=== PATIENT | male | born 1935 | race Caucasian/White ===

== ENCOUNTER 2019-06-01 18:40 | Inpatient (IN) | payer MEDICARE, MEDICAID ==
[~2019-06-01] VITALS: Ht 176.5 cm; Wt 79.2 kg
--- NOTE | 2019-06-01 18:53 | NUR ---
PT BIB BY [facility] FROM [place]. PT WAS SOB IN THE MORNING AND WENT TO . BLOOD LAB RESULTS AT SHOWED ELEVATED TROP AND BNP. PT STATES HE BECOMES SOB WHEN HE LAYS FLAT. PT STATES HE HASNT TAKEN HIS MEDICATIONS IN OVER A MONTH. MED STUDENT KALIE IS BEDSIDE. CALL LIGHT WITHIN REACH
[2019-06-01] MEDS ORDERED: ALBUTEROL/IPRATROPIUM 2.5MG/0.5MG, 3 ML ONE (19:24)
[2019-06-01] MEDS ORDERED: ALBUTEROL/IPRATROPIUM 2.5MG/0.5MG, 3 ML NPPB ONE (19:30)
[2019-06-01] MEDS ORDERED: hydrALAzine 20 MG/ML, 1ML IV ONE (19:30)
--- NOTE | 2019-06-01 19:30 | NUR ---
PRECEPTOR NOTE: DR. CHAMPAGNE AT BEDSIDE. PER DR. CHAMPAGNE, HEPARIN DOES NOT NEED TO BE STARTED HERE AND PT WILL PROBABLY GET LOVENOX FROM HOSPITALIST. PT DENIES ANY CP.
[2019-06-01] MEDS ORDERED: hydrALAzine 20 MG/ML, 1ML ONE (19:33)
[2019-06-01] MEDS ORDERED: PLEASE ENTER ALLERGIES MC SCH (20:00)
--- NOTE | 2019-06-01 20:12 | NUR ---
PT RESTING IN HOSPITAL BED. BLANKET PROVIDED. NO NEEDS AT THIS TIME
--- NOTE | 2019-06-01 20:20 | NUR ---
PT WAS RECEIVING HEPARIN [employer]. WAS GIVEN BOLUS AND DRIP WAS RUNNING. DISCONTINUED AT ARRIVAL
--- NOTE | 2019-06-01 21:29 | NUR ---
PT IS RESTING IN HOSPITAL BED. WATCHING TV. AWAITING ROOM FOR ADMIT. NO NEEDS AT THIS TIME
--- NOTE | 2019-06-01 22:10 | NUR ---
REPORT GIVEN TO SINDY NOVA.
[2019-06-01 22:40] VITALS: BP 163/81
[2019-06-01] MEDS ORDERED: hydrALAzine 20 MG/ML, 1ML IVPush PRN (23:00)
[2019-06-01] MEDS ORDERED: morphine SULFATE 10 MG/ML, 1ML IVPush PRN (23:00)
[2019-06-01] MEDS ORDERED: PROMETHAZINE 25 MG/ML, 1ML IM PRN (23:00)
[2019-06-01] MEDS ORDERED: ACETAMINOPHEN 325 MG TABLET PO PRN (23:00)
[2019-06-01] MEDS: methylPREDNISolone SOD SUCC 125 MG/2 ML IVPush SCH (23:18)
[2019-06-01] MEDS: HEPARIN 5,000 UNITS/ML, 1ML SQ SCH (23:18)
[2019-06-01 23:49] LABS: TROPONIN I 0.164 ng/mL (0.000-0.045)
[2019-06-02] VITALS (7 sets, daily range): BP systolic 127–177; BP diastolic 70–87
[2019-06-02 00:29] LABS: FREE T4 (FREE THYROXINE) 0.37 ng/dL (0.76-1.46)
[2019-06-02 05:07] LABS: BASOPHILS # (AUTO) 0.04 x10^3/uL (0-0.1); BASOPHILS % (AUTO) 1 % (0-1); EOSINOPHILS # (AUTO) 0.01 x10^3/uL (0-0.4); EOSINOPHILS % (AUTO) 0 % (1-7); LYMPHOCYTES # (AUTO) 0.64 x10^3/uL (1-3.4); LYMPHOCYTES % (AUTO) 10 % (22-44); MD NO; MEAN CORPUSCULAR HEMOGLOBIN 29.5 pg (27.5-34.5); MEAN CORPUSCULAR HGB CONC 32.9 g/dL (33.2-36.2); MEAN CORPUSCULAR VOLUME 89.6 fL (81-97); MEAN PLATELET VOLUME 9.8 fL (7.4-10.4); MONOCYTES # (AUTO) 0.06 x10^3/uL (0.2-0.8); MONOCYTES % (AUTO) 1 % (2-9); NEUTROPHILS # (AUTO) 5.79 x10^3/uL (1.8-6.8); NEUTROPHILS % (AUTO) 89 % (42-75); PLATELET COUNT 217 x10^3/uL (130-400); RED BLOOD COUNT 3.95 x10^6/uL (4.38-5.82); RED CELL DISTRIBUTION WIDTH 14.9 % (9.4-14.8)
[2019-06-02] MEDS: methylPREDNISolone SOD SUCC 125 MG/2 ML IVPush SCH ×4 (05:09→22:01)
[2019-06-02] MEDS: ASPIRIN 81 MG TABLET EC PO SCH (05:10)
[2019-06-02 05:16] LABS: CHLORIDE 114 mmol/L (98-107)
[2019-06-02 05:28] LABS: ALANINE AMINOTRANSFERASE 9 U/L (12-78); ALBUMIN 2.5 g/dL (3.4-5.0); ALKALINE PHOSPHATASE 105 U/L (45-117); ANION GAP 5 mmol/L (5-15); BILIRUBIN,TOTAL 0.8 mg/dL (0.2-1.0); CALCIUM 8.7 mg/dL (8.5-10.1); CHOL/HDL RATIO 6.3; CHOLESTEROL, TOTAL 190 mg/dL (140-239); CREATININE 1.76 mg/dL (0.7-1.3); HDL CHOL % 16 % (26-37); HDL CHOLESTEROL (DIRECT) 30 mg/dL (40-60); LDL CHOLESTEROL,CALCULATED 116 mg/dL (54-169); LDL/HDL RATIO 3.9 (0.5-3.0); TOTAL PROTEIN 5.6 g/dL (6.4-8.2); TRIGLYCERIDES 218 mg/dL (50-200); VLDL CHOLESTEROL 44 mg/dL (0-25)
[2019-06-02] MEDS: HEPARIN 5,000 UNITS/ML, 1ML SQ SCH ×3 (06:13→22:01)
[2019-06-02] MEDS ORDERED: FUROSEMIDE 20 MG/2 ML IV ONE (07:00)
[2019-06-02] MEDS: ALBUTEROL/IPRATROPIUM 2.5MG/0.5MG, 3 ML NPPB SCH ×3 (07:15→19:07)
[2019-06-02] MEDS: DOXYCYCLINE 100MG CAP PO SCH ×2 (08:44→22:01)
[2019-06-02] MEDS: LEVOTHYROXINE 50 MCG TABLET PO SCH (08:53)
[2019-06-02] MEDS ORDERED: hydrALAzine 20 MG/ML, 1ML IV PRN (09:00)
[2019-06-02] MEDS ORDERED: POTASSIUM PHOSPHATE 22 MEQ in SODIUM CHLORIDE 0.9% 500 ML IV ONE (10:00)
[2019-06-02] MEDS: CEFTRIAXONE PMX 1GM/50ML 50 ML IV SCH (10:55)
[2019-06-02] MEDS ORDERED: DOXA1TAB2 PO (12:37)
[2019-06-02] MEDS ORDERED: LEVO75TA5 PO (12:37)
[2019-06-02] MEDS ORDERED: LOSA100T14 PO (12:37)
[2019-06-02] MEDS ORDERED: HYDR12.517 PO (12:37)
[2019-06-02] MEDS ORDERED: ISOS30TA21 PO (12:37)
[2019-06-02] MEDS ORDERED: ASPI-650 PO (12:37)
[2019-06-02] MEDS ORDERED: CLON1PAT2 TP (12:37)
[2019-06-02] MEDS ORDERED: TAMS-11 PO (12:37)
[2019-06-02] MEDS: FUROSEMIDE 40 MG/4 ML IV SCH (16:13)
[2019-06-02] MEDS: POTASSIUM CHLORIDE 20 MEQ TAB.ER.PRT PO SCH (16:14)
[2019-06-03] MEDS ORDERED: TAMSULOSIN 0.4 MG CAP.ER.24H PO ONE (01:30)
[2019-06-03 01:38] VITALS: BP 161/80
[2019-06-03 05:33] LABS: ALANINE AMINOTRANSFERASE 20 U/L (12-78); ALBUMIN 2.8 g/dL (3.4-5.0); ANION GAP 9 mmol/L (5-15); CALCIUM 9.1 mg/dL (8.5-10.1); CHLORIDE 109 mmol/L (98-107); CREATININE 2.37 mg/dL (0.7-1.3)
[2019-06-03 05:35] LABS: ALKALINE PHOSPHATASE 107 U/L (45-117); BILIRUBIN,TOTAL 0.6 mg/dL (0.2-1.0); TOTAL PROTEIN 6.2 g/dL (6.4-8.2)
[2019-06-03 05:43] LABS: MEAN CORPUSCULAR HEMOGLOBIN 29.4 pg (27.5-34.5); MEAN CORPUSCULAR HGB CONC 33.1 g/dL (33.2-36.2); RED CELL DISTRIBUTION WIDTH 14.6 % (9.4-14.8)
[2019-06-03 06:04] VITALS: BP 165/101
[2019-06-03] MEDS: FUROSEMIDE 40 MG/4 ML IV SCH (06:06)
[2019-06-03] MEDS: ASPIRIN 81 MG TABLET EC PO SCH (06:06)
[2019-06-03] MEDS: HEPARIN 5,000 UNITS/ML, 1ML SQ SCH ×2 (06:06→15:04)
[2019-06-03] MEDS: LEVOTHYROXINE 50 MCG TABLET PO SCH (06:06)
[2019-06-03] MEDS: methylPREDNISolone SOD SUCC 125 MG/2 ML IVPush SCH ×3 (06:07→17:39)
[2019-06-03 06:26] LABS: BASOPHILS % (AUTO) 0 % (0-1); EOSINOPHILS % (AUTO) 0 % (1-7); LYMPHOCYTES # (AUTO) 0.85 x10^3/uL (1-3.4); LYMPHOCYTES % (AUTO) 7 % (22-44); MD SCAN; MEAN PLATELET VOLUME 9.9 fL (7.4-10.4); MONOCYTES # (AUTO) 0.23 x10^3/uL (0.2-0.8); MONOCYTES % (AUTO) 2 % (2-9); NEUTROPHILS % (AUTO) 91 % (42-75); PLATELET COUNT 267 x10^3/uL (130-400)
[2019-06-03] MEDS: ALBUTEROL/IPRATROPIUM 2.5MG/0.5MG, 3 ML NPPB SCH ×5 (06:57→19:18)
[2019-06-03 07:10] VITALS: BP 149/78
[2019-06-03] MEDS: SPIRONOLACTONE 25 MG TABLET PO SCH (08:55)
[2019-06-03] MEDS: DOXYCYCLINE 100MG CAP PO SCH ×2 (08:55→19:50)
[2019-06-03] MEDS: POTASSIUM CHLORIDE 20 MEQ TAB.ER.PRT PO SCH (08:56)
[2019-06-03] MEDS: TAMSULOSIN 0.4 MG CAP.ER.24H PO SCH (08:56)
[2019-06-03] MEDS: CEFTRIAXONE PMX 1GM/50ML 50 ML IV SCH (10:50)
[2019-06-03 15:10] VITALS: BP 113/69
[2019-06-03] MEDS ORDERED: methylPREDNISolone SOD SUCC 125 MG/2 ML IVPush SCH (17:00)
[2019-06-03] MEDS ORDERED: ALBUTEROL/IPRATROPIUM 2.5MG/0.5MG, 3 ML NPPB PRN (18:00)
[2019-06-03 19:24] VITALS: BP 146/72
[2019-06-04] MEDS: methylPREDNISolone SOD SUCC 125 MG/2 ML IVPush SCH ×4 (00:11→21:33)
[2019-06-04] MEDS: HEPARIN 5,000 UNITS/ML, 1ML SQ SCH ×4 (00:11→23:00)
[2019-06-04 01:27] VITALS: BP 134/68
[2019-06-04 05:04] LABS: MEAN CORPUSCULAR HEMOGLOBIN 29.5 pg (27.5-34.5); MEAN CORPUSCULAR HGB CONC 32.7 g/dL (33.2-36.2); MEAN CORPUSCULAR VOLUME 90.2 fL (81-97); MEAN PLATELET VOLUME 10.2 fL (7.4-10.4); PLATELET COUNT 221 x10^3/uL (130-400); RED CELL DISTRIBUTION WIDTH 14.9 % (9.4-14.8)
[2019-06-04 05:14] LABS: ANION GAP 7 mmol/L (5-15); CALCIUM 8.9 mg/dL (8.5-10.1); CHLORIDE 107 mmol/L (98-107)
[2019-06-04 05:24] LABS: BASOPHILS # (AUTO) 0.01 x10^3/uL (0-0.1); BASOPHILS % (AUTO) 0 % (0-1); EOSINOPHILS # (AUTO) 0.01 x10^3/uL (0-0.4); EOSINOPHILS % (AUTO) 0 % (1-7); LYMPHOCYTES % (AUTO) 3 % (22-44); MD SCAN; MONOCYTES # (AUTO) 0.23 x10^3/uL (0.2-0.8); MONOCYTES % (AUTO) 2 % (2-9); NEUTROPHILS # (AUTO) 12.77 x10^3/uL (1.8-6.8); NEUTROPHILS % (AUTO) 95 % (42-75)
[2019-06-04] MEDS: ASPIRIN 81 MG TABLET EC PO SCH (06:12)
[2019-06-04 07:10] VITALS: BP 133/81
[2019-06-04] MEDS: ALBUTEROL/IPRATROPIUM 2.5MG/0.5MG, 3 ML NPPB SCH ×4 (07:55→20:00)
[2019-06-04] MEDS: CEFTRIAXONE PMX 1GM/50ML 50 ML IV SCH (10:01)
[2019-06-04] MEDS: TAMSULOSIN 0.4 MG CAP.ER.24H PO SCH (10:02)
[2019-06-04] MEDS: DOXYCYCLINE 100MG CAP PO SCH (10:02)
[2019-06-04] MEDS: SPIRONOLACTONE 25 MG TABLET PO SCH (10:02)
[2019-06-04] MEDS ORDERED: MAGNESIUM SULFATE PMX 2GM/50ML 50 ML IV ONE (10:30)
[2019-06-04 13:47] VITALS: BP 126/78
[2019-06-04 19:51] LABS: MICROSCOPIC INDICATED
[2019-06-04 19:59] LABS: CULTURE INDICATED? NO
[2019-06-04] MEDS: FINASTERIDE 5 MG TABLET PO SCH (21:30)
[2019-06-05 00:13] VITALS: BP 136/79
[2019-06-05 03:08] LABS: MICROSCOPIC INDICATED
[2019-06-05 03:24] LABS: CULTURE INDICATED? NO
[2019-06-05 05:15] LABS: MEAN CORPUSCULAR HEMOGLOBIN 29.7 pg (27.5-34.5); MEAN CORPUSCULAR HGB CONC 33.2 g/dL (33.2-36.2); MEAN CORPUSCULAR VOLUME 89.4 fL (81-97); MEAN PLATELET VOLUME 10.4 fL (7.4-10.4); PLATELET COUNT 196 x10^3/uL (130-400); RED BLOOD COUNT 3.68 x10^6/uL (4.38-5.82); RED CELL DISTRIBUTION WIDTH 14.5 % (9.4-14.8)
[2019-06-05 05:27] LABS: ANION GAP 7 mmol/L (5-15); CALCIUM 8.7 mg/dL (8.5-10.1); CHLORIDE 107 mmol/L (98-107)
[2019-06-05 05:31] LABS: CREATININE 2.49 mg/dL (0.7-1.3)
[2019-06-05 05:36] LABS: BASOPHILS # (AUTO) 0.03 x10^3/uL (0-0.1); BASOPHILS % (AUTO) 0 % (0-1); EOSINOPHILS % (AUTO) 0 % (1-7); LYMPHOCYTES # (AUTO) 0.31 x10^3/uL (1-3.4); LYMPHOCYTES % (AUTO) 3 % (22-44); MD SCAN; MONOCYTES # (AUTO) 0.19 x10^3/uL (0.2-0.8); MONOCYTES % (AUTO) 2 % (2-9); NEUTROPHILS # (AUTO) 9.97 x10^3/uL (1.8-6.8); NEUTROPHILS % (AUTO) 95 % (42-75)
[2019-06-05] MEDS: ASPIRIN 81 MG TABLET EC PO SCH (05:43)
[2019-06-05] MEDS: ALBUTEROL/IPRATROPIUM 2.5MG/0.5MG, 3 ML NPPB SCH ×4 (06:20→20:12)
[2019-06-05] MEDS: HEPARIN 5,000 UNITS/ML, 1ML SQ SCH ×3 (06:38→23:32)
[2019-06-05 08:20] VITALS: BP 139/77
[2019-06-05] MEDS: FINASTERIDE 5 MG TABLET PO SCH (09:53)
[2019-06-05] MEDS: TAMSULOSIN 0.4 MG CAP.ER.24H PO SCH (09:54)
[2019-06-05] MEDS: methylPREDNISolone SOD SUCC 125 MG/2 ML IVPush SCH ×2 (09:55→20:47)
[2019-06-05] MEDS ORDERED: FUROSEMIDE 40 MG/4 ML IV SCH (10:30)
[2019-06-05] MEDS: AZITHROMYCIN 250 MG TABLET PO SCH (11:10)
[2019-06-05 12:24] VITALS: BP 156/85
[2019-06-05 20:44] VITALS: BP 148/67
[2019-06-06 01:49] VITALS: BP 152/70
[2019-06-06 05:38] LABS: BASOPHILS % (AUTO) 0 % (0-1); EOSINOPHILS % (AUTO) 0 % (1-7); LYMPHOCYTES # (AUTO) 0.36 x10^3/uL (1-3.4); LYMPHOCYTES % (AUTO) 3 % (22-44); MD NO; MEAN CORPUSCULAR HEMOGLOBIN 29.4 pg (27.5-34.5); MEAN CORPUSCULAR HGB CONC 32.5 g/dL (33.2-36.2); MEAN CORPUSCULAR VOLUME 90.3 fL (81-97); MEAN PLATELET VOLUME 10.6 fL (7.4-10.4); MONOCYTES # (AUTO) 0.25 x10^3/uL (0.2-0.8); MONOCYTES % (AUTO) 2 % (2-9); NEUTROPHILS # (AUTO) 10.41 x10^3/uL (1.8-6.8); NEUTROPHILS % (AUTO) 94 % (42-75); PLATELET COUNT 194 x10^3/uL (130-400); RED BLOOD COUNT 4.06 x10^6/uL (4.38-5.82); RED CELL DISTRIBUTION WIDTH 14.5 % (9.4-14.8)
[2019-06-06] MEDS: ASPIRIN 81 MG TABLET EC PO SCH (06:09)
[2019-06-06 07:06] VITALS: BP 165/80
[2019-06-06] MEDS: ALBUTEROL/IPRATROPIUM 2.5MG/0.5MG, 3 ML NPPB SCH ×4 (07:55→20:00)
[2019-06-06 08:37] LABS: ANION GAP 7 mmol/L (5-15); CALCIUM 9.2 mg/dL (8.5-10.1); CHLORIDE 108 mmol/L (98-107); CREATININE 2.52 mg/dL (0.7-1.3)
[2019-06-06] MEDS: FINASTERIDE 5 MG TABLET PO SCH (09:51)
[2019-06-06] MEDS: TAMSULOSIN 0.4 MG CAP.ER.24H PO SCH (09:51)
[2019-06-06] MEDS: AZITHROMYCIN 250 MG TABLET PO SCH (09:51)
[2019-06-06] MEDS: FUROSEMIDE 40 MG/4 ML IV SCH ×2 (09:51→21:11)
[2019-06-06] MEDS: HEPARIN 5,000 UNITS/ML, 1ML SQ SCH ×2 (09:51→17:45)
[2019-06-06 14:10] VITALS: BP 146/83
[2019-06-06 21:09] VITALS: BP 149/84
[2019-06-07] MEDS: HEPARIN 5,000 UNITS/ML, 1ML SQ SCH ×3 (01:39→20:00)
[2019-06-07 01:41] VITALS: BP 157/84
[2019-06-07 05:02] LABS: BASOPHILS # (AUTO) 0.01 x10^3/uL (0-0.1); BASOPHILS % (AUTO) 0 % (0-1); EOSINOPHILS % (AUTO) 0 % (1-7); LYMPHOCYTES # (AUTO) 0.46 x10^3/uL (1-3.4); LYMPHOCYTES % (AUTO) 4 % (22-44); MD NO; MEAN CORPUSCULAR HEMOGLOBIN 29.6 pg (27.5-34.5); MEAN CORPUSCULAR HGB CONC 32.9 g/dL (33.2-36.2); MEAN PLATELET VOLUME 10.4 fL (7.4-10.4); MONOCYTES # (AUTO) 0.38 x10^3/uL (0.2-0.8); MONOCYTES % (AUTO) 4 % (2-9); NEUTROPHILS # (AUTO) 9.88 x10^3/uL (1.8-6.8); NEUTROPHILS % (AUTO) 92 % (42-75); PLATELET COUNT 197 x10^3/uL (130-400); RED BLOOD COUNT 4.09 x10^6/uL (4.38-5.82); RED CELL DISTRIBUTION WIDTH 14.3 % (9.4-14.8)
[2019-06-07 05:17] LABS: ANION GAP 5 mmol/L (5-15); CALCIUM 8.9 mg/dL (8.5-10.1); CHLORIDE 105 mmol/L (98-107); CREATININE 2.24 mg/dL (0.7-1.3)
[2019-06-07] MEDS: ASPIRIN 81 MG TABLET EC PO SCH (05:48)
[2019-06-07 06:39] VITALS: BP 160/85
[2019-06-07] MEDS: ALBUTEROL/IPRATROPIUM 2.5MG/0.5MG, 3 ML NPPB SCH ×4 (06:55→18:45)
[2019-06-07] MEDS: TAMSULOSIN 0.4 MG CAP.ER.24H PO SCH (08:34)
[2019-06-07] MEDS: FUROSEMIDE 40 MG/4 ML IV SCH ×2 (08:34→20:00)
[2019-06-07] MEDS: FINASTERIDE 5 MG TABLET PO SCH (08:35)
[2019-06-07] MEDS: AZITHROMYCIN 250 MG TABLET PO SCH (08:35)
[2019-06-07 12:03] VITALS: BP 141/78
[2019-06-07] MEDS ORDERED: POLYETHYLENE GLYCOL 17 GM PACKET NG ONE (16:00)
[2019-06-07] MEDS: METOPROLOL TARTRATE 25 MG TABLET PO SCH (18:05)
[2019-06-07 18:25] VITALS: BP 145/88
[2019-06-07] MEDS: DOCUSATE 100 MG CAPSULE PO SCH (20:00)
[2019-06-08 02:39] VITALS: BP 138/70
[2019-06-08] MEDS: HEPARIN 5,000 UNITS/ML, 1ML SQ SCH ×3 (02:42→23:57)
[2019-06-08 05:13] VITALS: BP 150/77
[2019-06-08] MEDS: METOPROLOL TARTRATE 25 MG TABLET PO SCH ×2 (05:14→17:25)
[2019-06-08] MEDS: ASPIRIN 81 MG TABLET EC PO SCH (05:14)
[2019-06-08 06:12] LABS: MEAN CORPUSCULAR HEMOGLOBIN 29.3 pg (27.5-34.5); MEAN CORPUSCULAR HGB CONC 32.4 g/dL (33.2-36.2); MEAN CORPUSCULAR VOLUME 90.4 fL (81-97); MEAN PLATELET VOLUME 11.2 fL (7.4-10.4); PLATELET COUNT 201 x10^3/uL (130-400); RED BLOOD COUNT 4.26 x10^6/uL (4.38-5.82); RED CELL DISTRIBUTION WIDTH 14.5 % (9.4-14.8)
[2019-06-08 06:22] LABS: CHLORIDE 103 mmol/L (98-107)
[2019-06-08 06:25] LABS: ANION GAP 8 mmol/L (5-15); CREATININE 2.18 mg/dL (0.7-1.3)
[2019-06-08] MEDS: ALBUTEROL/IPRATROPIUM 2.5MG/0.5MG, 3 ML NPPB SCH ×4 (06:30→18:58)
[2019-06-08 06:56] LABS: BASOPHILS # (AUTO) 0.01 x10^3/uL (0-0.1); BASOPHILS % (AUTO) 0 % (0-1); EOSINOPHILS % (AUTO) 0 % (1-7); LYMPHOCYTES # (AUTO) 0.61 x10^3/uL (1-3.4); LYMPHOCYTES % (AUTO) 5 % (22-44); MD SCAN; MONOCYTES # (AUTO) 0.81 x10^3/uL (0.2-0.8); MONOCYTES % (AUTO) 6 % (2-9); NEUTROPHILS % (AUTO) 89 % (42-75)
[2019-06-08 07:26] VITALS: BP 144/75
[2019-06-08] MEDS ORDERED: DOXAZOSIN 1MG TABLET PO SCH (09:00)
[2019-06-08] MEDS ORDERED: HYDROCHLOROTHIAZIDE 12.5 MG CAPSULE PO SCH (09:00)
[2019-06-08] MEDS ORDERED: ASPIRIN 325 MG TABLET EC PO SCH (09:00)
[2019-06-08] MEDS: FUROSEMIDE 40 MG/4 ML IV SCH ×2 (10:10→20:58)
[2019-06-08] MEDS: DOCUSATE 100 MG CAPSULE PO SCH ×2 (10:10→20:58)
[2019-06-08] MEDS: LEVOTHYROXINE 75 MCG TABLET PO SCH (10:11)
[2019-06-08] MEDS: AZITHROMYCIN 250 MG TABLET PO SCH (10:11)
[2019-06-08] MEDS: ISOSORBIDE MONONITRATE ER 30 MG TABLET PO SCH (10:11)
[2019-06-08] MEDS: FINASTERIDE 5 MG TABLET PO SCH (10:11)
[2019-06-08] MEDS: TAMSULOSIN 0.4 MG CAP.ER.24H PO SCH (10:11)
[2019-06-08 13:05] VITALS: BP 114/70
[2019-06-08] MEDS: LOSARTAN 100 MG TAB PO SCH (14:42)
[2019-06-08 21:09] VITALS: BP 108/65
[2019-06-08 23:58] VITALS: BP 109/66
[2019-06-09] VITALS: BP 109/66
[2019-06-09 05:08] LABS: MEAN CORPUSCULAR HEMOGLOBIN 29.6 pg (27.5-34.5); MEAN CORPUSCULAR HGB CONC 32.9 g/dL (33.2-36.2); PLATELET COUNT 191 x10^3/uL (130-400); RED BLOOD COUNT 3.84 x10^6/uL (4.38-5.82); RED CELL DISTRIBUTION WIDTH 14.7 % (9.4-14.8)
[2019-06-09 05:17] LABS: ANION GAP 7 mmol/L (5-15); CALCIUM 8.5 mg/dL (8.5-10.1); CHLORIDE 100 mmol/L (98-107); CREATININE 2.51 mg/dL (0.7-1.3)
[2019-06-09] MEDS: METOPROLOL TARTRATE 25 MG TABLET PO SCH ×2 (05:23→16:39)
[2019-06-09] MEDS: ASPIRIN 81 MG TABLET EC PO SCH (05:23)
[2019-06-09 05:25] VITALS: BP 119/68
[2019-06-09 05:45] LABS: BASOPHILS # (AUTO) 0.05 x10^3/uL (0-0.1); BASOPHILS % (AUTO) 1 % (0-1); EOSINOPHILS # (AUTO) 0.06 x10^3/uL (0-0.4); EOSINOPHILS % (AUTO) 1 % (1-7); LYMPHOCYTES % (AUTO) 6 % (22-44); MD SCAN; MONOCYTES # (AUTO) 0.56 x10^3/uL (0.2-0.8); MONOCYTES % (AUTO) 5 % (2-9); NEUTROPHILS # (AUTO) 9.44 x10^3/uL (1.8-6.8); NEUTROPHILS % (AUTO) 87 % (42-75)
[2019-06-09] MEDS: HEPARIN 5,000 UNITS/ML, 1ML SQ SCH (06:10)
[2019-06-09] MEDS: ALBUTEROL/IPRATROPIUM 2.5MG/0.5MG, 3 ML NPPB SCH (06:47)
[2019-06-09] MEDS: ISOSORBIDE MONONITRATE ER 30 MG TABLET PO SCH (07:59)
[2019-06-09] MEDS: TAMSULOSIN 0.4 MG CAP.ER.24H PO SCH (07:59)
[2019-06-09] MEDS: FUROSEMIDE 40 MG/4 ML IV SCH (07:59)
[2019-06-09] MEDS: AZITHROMYCIN 250 MG TABLET PO SCH (07:59)
[2019-06-09] MEDS: DOCUSATE 100 MG CAPSULE PO SCH (07:59)
[2019-06-09] MEDS: LOSARTAN 100 MG TAB PO SCH (08:00)
[2019-06-09] MEDS: LEVOTHYROXINE 75 MCG TABLET PO SCH (08:00)
[2019-06-09] MEDS: FINASTERIDE 5 MG TABLET PO SCH (08:04)
[2019-06-09] MEDS ORDERED: FURO40TA6 PO (09:50)
[2019-06-09] MEDS ORDERED: PRED20TA PO ×2 (09:50)
[2019-06-09] MEDS ORDERED: METO25TA35 PO (09:50)
[2019-06-09] MEDS ORDERED: TAMS-11 PO (09:50)
[2019-06-09] MEDS ORDERED: FINA5TAB4 PO (09:50)
[2019-06-09 10:45] VITALS: BP 104/62
[2019-06-09 13:20] VITALS: BP 101/60
[2019-06-09 16:45] VITALS: BP 94/55
== END 2019-06-09 16:52 | disposition home health service (06) | DRG 291 ==
LOC: ED 20:52 → EDIP 21:56 → 5SO 22:37 → DCLOUNGE 06-09 16:10
PROVIDERS: ADMIT Family Medicine; ATTEND Internal Medicine
PROC: 0T9B70Z Drainage of Bladder with Drainage Device, Via Natural or Artificial Opening (ICD-10-PCS; principal; 2019-06-04)
DX: I13.0 Hypertensive heart and chronic kidney disease with heart failure and stage 1 through stage 4 chronic kidney disease, or unspecified chronic kidney disease (principal); I50.43 Acute on chronic combined systolic (congestive) and diastolic (congestive) heart failure; J12.9 Viral pneumonia, unspecified; J44.1 Chronic obstructive pulmonary disease with (acute) exacerbation; J96.10 Chronic respiratory failure, unspecified whether with hypoxia or hypercapnia; N17.9 Acute kidney failure, unspecified; J44.0 Chronic obstructive pulmonary disease with (acute) lower respiratory infection; D64.9 Anemia, unspecified; E03.9 Hypothyroidism, unspecified; E78.5 Hyperlipidemia, unspecified; N18.3 Chronic kidney disease, stage 3 (moderate); N40.0 Benign prostatic hyperplasia without lower urinary tract symptoms; Z91.14 Patient's other noncompliance with medication regimen; I25.2 Old myocardial infarction; Z99.81 Dependence on supplemental oxygen
CPT/HCPCS: 36415; 71045; 71250; 76770; 80048; 80053; 80061; 81001; 82728; 83540; 83550; 83605; 83735; 83880; 84100; 84145; 84439; 84443; 84484; 85025; 86140; 87205; 93005; 93306; 94640; 96374; G0378; J0696; J1644; J1940; J7620; J0360; J2930; J3475; J7040; J7512

== ENCOUNTER 2019-06-16 01:26 | Inpatient (IN) | payer MEDICARE, MEDICAID ==
[~2019-06-16] VITALS: Ht 175.3 cm; Wt 74.4 kg
[~2019-06-16 01:26] MED LIST: ASPI-650 PO; CLON1PAT2 TP; DOXA1TAB2 PO; FINA5TAB4 PO; FURO40TA6 PO; HYDR12.517 PO; ISOS30TA21 PO; LEVO75TA5 PO; LOSA100T14 PO; METO25TA35 PO; PRED20TA PO; TAMS-11 PO
[2019-06-16] MEDS ORDERED: SODIUM CHLORIDE FLUSH 10ML SYR IVF ONE (01:30)
--- NOTE | 2019-06-16 01:35 | NUR ---
Patient presents to ER from [facility] for +trop. Patient was picked up by EMS from home earlier due to generalized weakness. His home health care nurse was there to check his de dios catheter and called EMS. After evaluation at [facility], patient had +trop and was sent to [facility] for higher level of care. Patient denies CP, N/V, dizziness. Patient states he was unable to get around on his own at home. Patient is in NAD. Respirations even and unlabored.
[2019-06-16 02:10] LABS: BASOPHILS # (AUTO) 0.05 x10^3/uL (0-0.1); BASOPHILS % (AUTO) 0 % (0-1); EOSINOPHILS # (AUTO) 0.11 x10^3/uL (0-0.4); EOSINOPHILS % (AUTO) 1 % (1-7); LYMPHOCYTES # (AUTO) 1.25 x10^3/uL (1-3.4); LYMPHOCYTES % (AUTO) 11 % (22-44); MD NO; MEAN CORPUSCULAR HEMOGLOBIN 29.6 pg (27.5-34.5); MEAN CORPUSCULAR HGB CONC 33.3 g/dL (33.2-36.2); MEAN PLATELET VOLUME 9.6 fL (7.4-10.4); MONOCYTES # (AUTO) 0.63 x10^3/uL (0.2-0.8); MONOCYTES % (AUTO) 6 % (2-9); NEUTROPHILS # (AUTO) 8.91 x10^3/uL (1.8-6.8); NEUTROPHILS % (AUTO) 81 % (42-75); PLATELET COUNT 175 x10^3/uL (130-400); RED BLOOD COUNT 3.61 x10^6/uL (4.38-5.82); RED CELL DISTRIBUTION WIDTH 14.6 % (9.4-14.8)
[2019-06-16 02:23] LABS: ALANINE AMINOTRANSFERASE 23 U/L (12-78); ALBUMIN 2.5 g/dL (3.4-5.0); ANION GAP 6 mmol/L (5-15); CALCIUM 8.5 mg/dL (8.5-10.1); CHLORIDE 101 mmol/L (98-107); CREATININE 2.42 mg/dL (0.7-1.3)
[2019-06-16 02:27] LABS: ALKALINE PHOSPHATASE 68 U/L (45-117); BILIRUBIN,TOTAL 0.7 mg/dL (0.2-1.0)
[2019-06-16 02:38] LABS: TROPONIN I 0.466 ng/mL (0.000-0.045)
[2019-06-16 03:06] LABS: INTERNATIONAL NORMALIZED RATIO 1.01 (0.93-1.1); PROTHROMBIN TIME 10.7 Seconds (9.6-11.5)
[2019-06-16] MEDS ORDERED: HEPARIN 25,000 UNITS/250ML PMX 250 ML ONE (03:21)
[2019-06-16] MEDS ORDERED: HEPARIN 5,000 UNITS/ML, 1ML ONE (03:21)
[2019-06-16] MEDS ORDERED: HEPARIN 25,000 UNITS/250ML PMX 250 ML IV PRN (03:30)
[2019-06-16] MEDS ORDERED: HEPARIN 5,000 UNITS/ML, 1ML IV ONE (03:30)
--- NOTE | 2019-06-16 03:41 | NUR ---
Patient report given to SINDY Yoon. Patient to be transferred to room 509-1.
[2019-06-16] MEDS ORDERED: morphine SULFATE 10 MG/ML, 1ML IVPush PRN (04:30)
[2019-06-16] MEDS ORDERED: POLYETHYLENE GLYCOL 17 GM PACKET PO PRN (04:30)
[2019-06-16] MEDS ORDERED: ONDANSETRON ODT 4 MG PO PRN (04:30)
[2019-06-16] MEDS ORDERED: BISACODYL 10 MG SUPP PR PRN (04:30)
[2019-06-16] MEDS ORDERED: hydrALAzine 20 MG/ML, 1ML IVPush PRN (04:30)
[2019-06-16] MEDS ORDERED: FUROSEMIDE 20 MG/2 ML IV ONE (04:30)
[2019-06-16] MEDS ORDERED: OXYcodone IR 5MG TABLET PO PRN (04:30)
[2019-06-16] MEDS ORDERED: ACETAMINOPHEN 325 MG TABLET PO PRN (04:30)
[2019-06-16] MEDS ORDERED: DOCUSATE 100 MG CAPSULE PO PRN (04:30)
[2019-06-16] MEDS ORDERED: PROMETHAZINE 25 MG/ML, 1ML IM PRN (04:30)
[2019-06-16] MEDS ORDERED: ONDANSETRON 2MG/ML, 2ML IVPush PRN (04:30)
[2019-06-16] MEDS ORDERED: POTASSIUM CHLORIDE 20 MEQ TAB.ER.PRT PO ONE (05:00)
[2019-06-16 05:09] VITALS: BP 153/66
[2019-06-16] MEDS ORDERED: METOPROLOL TARTRATE 25 MG TABLET PO SCH (06:00)
[2019-06-16] MEDS: HEPARIN 5,000 UNITS/ML, 1ML SQ SCH ×3 (06:14→20:04)
[2019-06-16 06:18] LABS: FREE T4 (FREE THYROXINE) 0.63 ng/dL (0.76-1.46); TROPONIN I 0.431 ng/mL (0.000-0.045)
[2019-06-16 07:10] VITALS: BP 170/82
[2019-06-16] MEDS: ASPIRIN 325 MG TABLET EC PO SCH (08:56)
[2019-06-16] MEDS: TAMSULOSIN 0.4 MG CAP.ER.24H PO SCH (08:56)
[2019-06-16] MEDS: LEVOTHYROXINE 75 MCG TABLET PO SCH (08:56)
[2019-06-16] MEDS: FINASTERIDE 5 MG TABLET PO SCH (08:57)
[2019-06-16] MEDS: FUROSEMIDE 20 MG/2 ML IV SCH (08:57)
[2019-06-16] MEDS ORDERED: LEVOTHYROXINE 100 MCG INJ IVPush STA (09:32)
[2019-06-16 12:46] LABS: TROPONIN I 0.334 ng/mL (0.000-0.045)
[2019-06-16 13:18] VITALS: BP 147/69
[2019-06-16 16:21] VITALS: BP 153/74
[2019-06-16] MEDS: METOPROLOL TARTRATE 25 MG TABLET PO SCH (17:51)
[2019-06-16] MEDS ORDERED: POTASSIUM CHLORIDE 20 MEQ TAB.ER.PRT ONE (17:52)
[2019-06-16] MEDS: POTASSIUM CHLORIDE 20 MEQ TAB.ER.PRT PO SCH (17:54)
[2019-06-16 22:00] VITALS: BP 161/74
[2019-06-17 01:35] VITALS: BP 171/68
[2019-06-17 01:41] VITALS: BP 165/71
[2019-06-17] MEDS: METOPROLOL TARTRATE 25 MG TABLET PO SCH ×2 (04:59→17:47)
[2019-06-17] MEDS: HEPARIN 5,000 UNITS/ML, 1ML SQ SCH ×2 (05:00→12:30)
[2019-06-17 05:24] LABS: BASOPHILS # (AUTO) 0.05 x10^3/uL (0-0.1); BASOPHILS % (AUTO) 1 % (0-1); EOSINOPHILS # (AUTO) 0.15 x10^3/uL (0-0.4); EOSINOPHILS % (AUTO) 2 % (1-7); LYMPHOCYTES # (AUTO) 1.01 x10^3/uL (1-3.4); LYMPHOCYTES % (AUTO) 12 % (22-44); MD NO; MEAN CORPUSCULAR HEMOGLOBIN 29.9 pg (27.5-34.5); MEAN CORPUSCULAR HGB CONC 33.4 g/dL (33.2-36.2); MEAN CORPUSCULAR VOLUME 89.6 fL (81-97); MEAN PLATELET VOLUME 10.2 fL (7.4-10.4); MONOCYTES # (AUTO) 0.67 x10^3/uL (0.2-0.8); MONOCYTES % (AUTO) 8 % (2-9); NEUTROPHILS # (AUTO) 6.85 x10^3/uL (1.8-6.8); NEUTROPHILS % (AUTO) 79 % (42-75); PLATELET COUNT 154 x10^3/uL (130-400); RED BLOOD COUNT 3.53 x10^6/uL (4.38-5.82); RED CELL DISTRIBUTION WIDTH 15.2 % (9.4-14.8)
[2019-06-17 05:27] LABS: ALBUMIN 2.3 g/dL (3.4-5.0); ANION GAP 4 mmol/L (5-15); CALCIUM 8.4 mg/dL (8.5-10.1); CHLORIDE 102 mmol/L (98-107)
[2019-06-17 05:31] LABS: ALANINE AMINOTRANSFERASE 20 U/L (12-78); ALKALINE PHOSPHATASE 66 U/L (45-117); BILIRUBIN,TOTAL 0.7 mg/dL (0.2-1.0); CHOL/HDL RATIO 6.4; CHOLESTEROL, TOTAL 223 mg/dL (140-239); CREATININE 2.17 mg/dL (0.7-1.3); HDL CHOL % 16 % (26-37); HDL CHOLESTEROL (DIRECT) 35 mg/dL (40-60); LDL CHOLESTEROL,CALCULATED 129 mg/dL (54-169); LDL/HDL RATIO 3.7 (0.5-3.0); TOTAL PROTEIN 4.7 g/dL (6.4-8.2); TRIGLYCERIDES 295 mg/dL (50-200); VLDL CHOLESTEROL 59 mg/dL (0-25)
[2019-06-17] MEDS ORDERED: LEVOTHYROXINE 88 MCG TABLET PO SCH (06:00)
[2019-06-17 07:30] VITALS: BP 162/71
[2019-06-17] MEDS: LEVOTHYROXINE 75 MCG TABLET PO SCH (09:00)
[2019-06-17] MEDS ORDERED: LISINOPRIL 10 MG TABLET PO SCH (09:00)
[2019-06-17] MEDS: FUROSEMIDE 20 MG/2 ML IV SCH (10:19)
[2019-06-17] MEDS: FINASTERIDE 5 MG TABLET PO SCH (10:20)
[2019-06-17] MEDS: ASPIRIN 325 MG TABLET EC PO SCH (10:20)
[2019-06-17] MEDS: TAMSULOSIN 0.4 MG CAP.ER.24H PO SCH (10:20)
[2019-06-17] MEDS: POTASSIUM CHLORIDE 20 MEQ TAB.ER.PRT PO SCH (10:20)
[2019-06-17] MEDS ORDERED: DOCU100C33 PO (12:57)
[2019-06-17] MEDS ORDERED: LISI-167 PO (12:57)
[2019-06-17] MEDS ORDERED: LEVO88TA2 PO (12:57)
[2019-06-17] MEDS ORDERED: SPIR25TA5 PO (13:04)
[2019-06-17 13:55] VITALS: BP 126/58
[2019-06-17] MEDS ORDERED: CARV6.252 PO (14:44)
[2019-06-17] MEDS ORDERED: MAGNESIUM CITRATE 300ML ORAL SOL PO ONE (16:00)
[2019-06-17 19:01] VITALS: BP 130/67
== END 2019-06-17 19:30 | DRG 280 ==
LOC: ED 02:52 → 5SO 03:58 → ED 04:14 → 5SO 04:15
PROVIDERS: ADMIT Internal Medicine; ATTEND Internal Medicine
DX: I21.4 Non-ST elevation (NSTEMI) myocardial infarction (principal); I50.43 Acute on chronic combined systolic (congestive) and diastolic (congestive) heart failure; I13.0 Hypertensive heart and chronic kidney disease with heart failure and stage 1 through stage 4 chronic kidney disease, or unspecified chronic kidney disease; J96.10 Chronic respiratory failure, unspecified whether with hypoxia or hypercapnia; N17.9 Acute kidney failure, unspecified; D64.9 Anemia, unspecified; E03.9 Hypothyroidism, unspecified; E87.6 Hypokalemia; J44.9 Chronic obstructive pulmonary disease, unspecified; K57.90 Diverticulosis of intestine, part unspecified, without perforation or abscess without bleeding; K80.20 Calculus of gallbladder without cholecystitis without obstruction; N18.3 Chronic kidney disease, stage 3 (moderate); N40.0 Benign prostatic hyperplasia without lower urinary tract symptoms; R62.7 Adult failure to thrive; Z86.73 Personal history of transient ischemic attack (TIA), and cerebral infarction without residual deficits; Z87.891 Personal history of nicotine dependence; Z79.899 Other long term (current) drug therapy
CPT/HCPCS: 36415; 74018; 74176; 80053; 80061; 83036; 83735; 84439; 84443; 84484; 85025; 85520; 85610; 85730; 93005; 99291; G0378; J1644; J1940

== ENCOUNTER 2019-12-16 11:13 | Inpatient (IN) | payer MEDICARE, MEDICAID ==
[~2019-12-16] VITALS: Ht 167.6 cm; Wt 57.7 kg
[~2019-12-16 11:13] MED LIST changes: +CARV6.252 PO; +DOCU100C33 PO; +LEVO88TA2 PO; +LISI-167 PO; +SPIR25TA5 PO
[2019-12-16] MEDS ORDERED: TRAZ50TA66 PO (11:38)
[2019-12-16] MEDS ORDERED: TORS20TA2 PO (11:38)
[2019-12-16] MEDS ORDERED: LEVO112T4 PO (11:38)
[2019-12-16] MEDS ORDERED: CARV12.52 PO (11:38)
[2019-12-16] MEDS ORDERED: VANCOMYCIN PO (11:38)
[2019-12-16] MEDS ORDERED: DRON5SOL PO (11:38)
[2019-12-16] MEDS ORDERED: SPIR25TA5 PO (11:38)
--- NOTE | 2019-12-16 11:38 | NUR ---
BIB [facility] FROM [facility]. PT VOMITED LAST NIGHT AND HYPOTENSIVE TODAY. PT BASELINE A&OX1, GCS 14. MANAGER INTERFACE [facility]: PIV 20G LFA, 450ML NS, BS 165 IVF RUNNING FOR LOW BP. UPON REVIEW OF MEDS GIVEN TO PT, PT STILL RECEIVING DIURETICS AND BP MEDS WHILE HAVING DIARRHEA D/T C-DIFF. PT CONNECTED TO MONITORING. FALL PRECAUTIONS IN PLACE.
[2019-12-16] MEDS ORDERED: SODIUM CHLORIDE 0.9% 1,000 ML IV ONE (11:40)
[2019-12-16] MEDS ORDERED: SODIUM CHLORIDE 0.9% 1,000ML IVBOLUS ONE (12:00)
[2019-12-16] MEDS ORDERED: SODIUM CHLORIDE FLUSH 10ML SYR IVF ONE (12:00)
[2019-12-16 12:14] LABS: MEAN CORPUSCULAR HEMOGLOBIN 27.5 pg (27.5-34.5); MEAN CORPUSCULAR HGB CONC 31.7 g/dL (33.2-36.2); MEAN CORPUSCULAR VOLUME 86.8 fL (81-97); MEAN PLATELET VOLUME 8.4 fL (7.4-10.4); PLATELET COUNT 339 x10^3/uL (130-400); RED BLOOD COUNT 3.33 x10^6/uL (4.38-5.82)
[2019-12-16 12:18] LABS: ALBUMIN 1.8 g/dL (3.4-5.0); ANION GAP 9 mmol/L (5-15); CALCIUM 8.1 mg/dL (8.5-10.1); CHLORIDE 105 mmol/L (98-107)
[2019-12-16 12:21] LABS: ALANINE AMINOTRANSFERASE 155 U/L (12-78); ALKALINE PHOSPHATASE 625 U/L (45-117); BILIRUBIN,TOTAL 2.1 mg/dL (0.2-1.0); CREATININE 2.72 mg/dL (0.7-1.3); TOTAL PROTEIN 4.8 g/dL (6.4-8.2)
--- NOTE | 2019-12-16 12:28 | NUR ---
[facility] CATH PLACED FOR URINE COLLECTION.
[2019-12-16 12:56] LABS: BASOPHILS # (AUTO) 0.04 x10^3/uL (0-0.1); BASOPHILS % (AUTO) 0 % (0-1); EOSINOPHILS # (AUTO) 0.08 x10^3/uL (0-0.4); EOSINOPHILS % (AUTO) 0 % (1-7); LYMPHOCYTES # (AUTO) 1.11 x10^3/uL (1-3.4); LYMPHOCYTES % (AUTO) 6 % (22-44); MD SCAN; MONOCYTES % (AUTO) 1 % (2-9); NEUTROPHILS # (AUTO) 18.82 x10^3/uL (1.8-6.8); NEUTROPHILS % (AUTO) 93 % (42-75)
--- NOTE | 2019-12-16 13:12 | NUR ---
PT TO BE ADMIN. PER MD, NO NEED FOR STRAIGHT CATH FOR URINE. [facility] CATH WILL COLLECT URINE WHEN PT URINATES. DAUGHTER AT BEDSIDE AND UPDATED ON POC.
[2019-12-16] MEDS ORDERED: SODIUM CHLORIDE FLUSH 10ML SYR IVF PRN (13:30)
--- NOTE | 2019-12-16 13:37 | NUR ---
DIET TRAY DELIVERED TO PT. PT APPRECIATIVE. DAUGHTER AT BEDSIDE.
[2019-12-16] MEDS ORDERED: SODIUM CHLORIDE 0.9% 1,000 ML IV SCH (14:55)
[2019-12-16] MEDS ORDERED: ACETAMINOPHEN 325 MG TABLET PO PRN ×2 (15:00→15:30)
[2019-12-16] MEDS ORDERED: METRONIDAZOLE PMX 500MG/100ML 100 ML IV SCH ×2 (15:00→15:30)
[2019-12-16] MEDS ORDERED: VANCOMYCIN 50 MG/ML ORAL SUSP PO SCH (15:00)
[2019-12-16] MEDS ORDERED: hydrALAzine 20 MG/ML, 1ML IVPush PRN (15:00)
[2019-12-16] MEDS ORDERED: ONDANSETRON 2MG/ML, 2ML IVPush PRN ×2 (15:00→15:30)
[2019-12-16] MEDS: SODIUM CHLORIDE 0.9% 1,000 ML IV SCH ×2 (15:18→21:41)
[2019-12-16] MEDS ORDERED: PHARMACY MAY ADJ FOR RENAL FX MC PRN (15:30)
[2019-12-16] MEDS: VANCOMYCIN 50 MG/ML ORAL SUSP PO SCH ×2 (15:30→22:51)
[2019-12-16] MEDS ORDERED: morphine SULFATE 10 MG/ML, 1ML IVPush PRN (15:30)
[2019-12-16] MEDS: LACTOBACILLUS CHEW TABLET PO SCH ×2 (16:00→22:51)
[2019-12-16] MEDS ORDERED: HEPARIN 5,000 UNITS/ML, 1ML ONE (16:02)
[2019-12-16] MEDS ORDERED: METRONIDAZOLE PMX 500MG/100ML 100 ML ONE (16:02)
[2019-12-16 16:12] LABS: MICROSCOPIC INDICATED
[2019-12-16] MEDS: HEPARIN 5,000 UNITS/ML, 1ML SQ SCH (16:13)
--- NOTE | 2019-12-16 17:49 | NUR ---
PT BACK FROM CT. PT RESTING COMFORTABLY. ERNIE.
--- NOTE | 2019-12-16 18:51 | NUR ---
Pt sleeping, no distress noted, family at bedside. VSWNL.
--- NOTE | 2019-12-16 19:51 | NUR ---
DAUGHTER SHIRAZ, PHONE NUMBER: [phone]
--- NOTE | 2019-12-16 20:38 | NUR ---
REPORT GIVEN TO ELIO CALLAHAN.
[2019-12-16] MEDS ORDERED: FAMOTIDINE 20 MG/2 ML IVPush SCH (21:00)
[2019-12-16 21:28] VITALS: BP 116/57
[2019-12-16] MEDS: METRONIDAZOLE PMX 500MG/100ML 100 ML IV SCH (22:51)
[2019-12-16] MEDS: FIDAXOMICIN 200 MG TABLET PO SCH (22:52)
[2019-12-17] MEDS: HEPARIN 5,000 UNITS/ML, 1ML SQ SCH ×5 (01:10→23:09)
[2019-12-17 02:00] VITALS: BP 116/49
[2019-12-17] MEDS: VANCOMYCIN 50 MG/ML ORAL SUSP PO SCH ×6 (04:58→23:09)
[2019-12-17] MEDS: METRONIDAZOLE PMX 500MG/100ML 100 ML IV SCH ×3 (04:58→20:54)
[2019-12-17] MEDS: LACTOBACILLUS CHEW TABLET PO SCH ×4 (04:58→20:54)
[2019-12-17 06:30] LABS: BASOPHILS # (AUTO) 0.13 x10^3/uL (0-0.1); BASOPHILS % (AUTO) 1 % (0-1); EOSINOPHILS # (AUTO) 0.17 x10^3/uL (0-0.4); EOSINOPHILS % (AUTO) 2 % (1-7); LYMPHOCYTES # (AUTO) 1.26 x10^3/uL (1-3.4); LYMPHOCYTES % (AUTO) 12 % (22-44); MD NO; MEAN CORPUSCULAR HEMOGLOBIN 28.8 pg (27.5-34.5); MEAN CORPUSCULAR HGB CONC 33.1 g/dL (33.2-36.2); MEAN CORPUSCULAR VOLUME 87.1 fL (81-97); MEAN PLATELET VOLUME 8.3 fL (7.4-10.4); MONOCYTES # (AUTO) 0.49 x10^3/uL (0.2-0.8); MONOCYTES % (AUTO) 4 % (2-9); NEUTROPHILS # (AUTO) 8.94 x10^3/uL (1.8-6.8); NEUTROPHILS % (AUTO) 81 % (42-75); PLATELET COUNT 292 x10^3/uL (130-400); RED BLOOD COUNT 3.25 x10^6/uL (4.38-5.82); RED CELL DISTRIBUTION WIDTH 15.5 % (9.4-14.8)
[2019-12-17 06:41] LABS: ALBUMIN 1.9 g/dL (3.4-5.0); ANION GAP 9 mmol/L (5-15); CALCIUM 7.9 mg/dL (8.5-10.1); CHLORIDE 109 mmol/L (98-107)
[2019-12-17 06:45] LABS: ALANINE AMINOTRANSFERASE 139 U/L (12-78); ALKALINE PHOSPHATASE 564 U/L (45-117); BILIRUBIN,TOTAL 2.4 mg/dL (0.2-1.0); CREATININE 2.27 mg/dL (0.7-1.3); TOTAL PROTEIN 4.9 g/dL (6.4-8.2)
[2019-12-17] MEDS: TAMSULOSIN 0.4 MG CAP.ER.24H PO SCH (08:54)
[2019-12-17] MEDS: FIDAXOMICIN 200 MG TABLET PO SCH ×2 (08:54→20:54)
[2019-12-17] MEDS: LEVOTHYROXINE 112 MCG TABLET PO SCH (08:54)
[2019-12-17] MEDS: FINASTERIDE 5 MG TABLET PO SCH (08:54)
[2019-12-17] MEDS: FAMOTIDINE 20 MG/2 ML IVPush SCH (08:55)
[2019-12-17 09:41] VITALS: BP 124/60
[2019-12-17 14:00] VITALS: BP 130/87
[2019-12-17] MEDS: PIPERACILLIN/TAZO/PMX 3.375GM 50 ML IV SCH (16:16)
[2019-12-17] MEDS: SODIUM CHLORIDE 0.9% 1,000 ML IV SCH (18:02)
[2019-12-17 22:53] VITALS: BP 138/62
[2019-12-18] MEDS: PIPERACILLIN/TAZO/PMX 3.375GM 50 ML IV SCH ×2 (02:21→10:32)
[2019-12-18 02:23] VITALS: BP 128/61
[2019-12-18] MEDS: VANCOMYCIN 50 MG/ML ORAL SUSP PO SCH ×4 (05:19→23:37)
[2019-12-18] MEDS: LACTOBACILLUS CHEW TABLET PO SCH ×4 (05:19→21:35)
[2019-12-18] MEDS: METRONIDAZOLE PMX 500MG/100ML 100 ML IV SCH ×3 (05:20→21:35)
[2019-12-18 07:46] VITALS: BP 152/66
[2019-12-18] MEDS: LEVOTHYROXINE 112 MCG TABLET PO SCH (08:48)
[2019-12-18] MEDS: TAMSULOSIN 0.4 MG CAP.ER.24H PO SCH (08:48)
[2019-12-18] MEDS: HEPARIN 5,000 UNITS/ML, 1ML SQ SCH ×3 (08:48→23:37)
[2019-12-18] MEDS: FIDAXOMICIN 200 MG TABLET PO SCH ×2 (08:49→21:35)
[2019-12-18] MEDS: FAMOTIDINE 20 MG/2 ML IVPush SCH (08:49)
[2019-12-18] MEDS: FINASTERIDE 5 MG TABLET PO SCH (08:49)
[2019-12-18 10:22] LABS: BASOPHILS # (AUTO) 0.05 x10^3/uL (0-0.1); BASOPHILS % (AUTO) 1 % (0-1); EOSINOPHILS # (AUTO) 0.17 x10^3/uL (0-0.4); EOSINOPHILS % (AUTO) 2 % (1-7); LYMPHOCYTES # (AUTO) 1.25 x10^3/uL (1-3.4); LYMPHOCYTES % (AUTO) 13 % (22-44); MD NO; MEAN CORPUSCULAR HEMOGLOBIN 27.6 pg (27.5-34.5); MEAN CORPUSCULAR HGB CONC 31.5 g/dL (33.2-36.2); MEAN CORPUSCULAR VOLUME 87.7 fL (81-97); MEAN PLATELET VOLUME 8.1 fL (7.4-10.4); MONOCYTES # (AUTO) 0.58 x10^3/uL (0.2-0.8); MONOCYTES % (AUTO) 6 % (2-9); NEUTROPHILS # (AUTO) 7.55 x10^3/uL (1.8-6.8); NEUTROPHILS % (AUTO) 79 % (42-75); PLATELET COUNT 318 x10^3/uL (130-400); RED BLOOD COUNT 3.46 x10^6/uL (4.38-5.82); RED CELL DISTRIBUTION WIDTH 15.8 % (9.4-14.8)
[2019-12-18 10:33] LABS: ALBUMIN 2.1 g/dL (3.4-5.0); ANION GAP 9 mmol/L (5-15); CALCIUM 8.2 mg/dL (8.5-10.1); CHLORIDE 112 mmol/L (98-107)
[2019-12-18 10:41] LABS: ALANINE AMINOTRANSFERASE 94 U/L (12-78); ALKALINE PHOSPHATASE 506 U/L (45-117); BILIRUBIN,TOTAL 1.5 mg/dL (0.2-1.0); CREATININE 2.32 mg/dL (0.7-1.3); TOTAL PROTEIN 5.1 g/dL (6.4-8.2)
[2019-12-18] MEDS: SODIUM CHLORIDE 0.9% 1,000 ML IV SCH (12:21)
[2019-12-18 14:58] VITALS: BP 127/72
[2019-12-18] MEDS: PIPERACILLIN/TAZO/PMX 2.25GM 50 ML IV SCH (17:46)
[2019-12-18 18:42] VITALS: BP 122/57
[2019-12-19 00:51] VITALS: BP 147/68
[2019-12-19] MEDS: SODIUM CHLORIDE 0.9% 1,000 ML IV SCH (02:26)
[2019-12-19] MEDS: PIPERACILLIN/TAZO/PMX 2.25GM 50 ML IV SCH (02:26)
[2019-12-19] MEDS: METRONIDAZOLE PMX 500MG/100ML 100 ML IV SCH (05:35)
[2019-12-19] MEDS: VANCOMYCIN 50 MG/ML ORAL SUSP PO SCH ×4 (05:35→23:19)
[2019-12-19] MEDS: LACTOBACILLUS CHEW TABLET PO SCH (05:35)
[2019-12-19 07:33] VITALS: BP 139/60
[2019-12-19] MEDS ORDERED: CEFAZOLIN 1,000 MG IM SCH (08:30)
[2019-12-19] MEDS ORDERED: CALCIUM CARBONATE 500 MG TAB.CHEW PO PRN (08:30)
[2019-12-19] MEDS: LEVOTHYROXINE 112 MCG TABLET PO SCH (09:49)
[2019-12-19] MEDS: HEPARIN 5,000 UNITS/ML, 1ML SQ SCH ×2 (09:49→18:16)
[2019-12-19] MEDS: FIDAXOMICIN 200 MG TABLET PO SCH ×2 (09:49→21:11)
[2019-12-19] MEDS: FINASTERIDE 5 MG TABLET PO SCH (09:49)
[2019-12-19] MEDS: TAMSULOSIN 0.4 MG CAP.ER.24H PO SCH (09:49)
[2019-12-19] MEDS: CEFAZOLIN PMX 1GM/50ML 50 ML IV SCH ×2 (09:49→21:11)
[2019-12-19 12:50] VITALS: BP 145/63
[2019-12-19 19:35] VITALS: BP 153/64
[2019-12-20 00:50] VITALS: BP 165/75
[2019-12-20] MEDS: HEPARIN 5,000 UNITS/ML, 1ML SQ SCH ×2 (02:28→11:19)
[2019-12-20] MEDS: VANCOMYCIN 50 MG/ML ORAL SUSP PO SCH ×2 (06:09→11:19)
[2019-12-20 09:15] VITALS: BP 152/63
[2019-12-20] MEDS: FIDAXOMICIN 200 MG TABLET PO SCH (09:51)
[2019-12-20] MEDS: TAMSULOSIN 0.4 MG CAP.ER.24H PO SCH (09:51)
[2019-12-20] MEDS: LEVOTHYROXINE 112 MCG TABLET PO SCH (09:52)
[2019-12-20] MEDS: CEFAZOLIN PMX 1GM/50ML 50 ML IV SCH (09:52)
[2019-12-20] MEDS: FINASTERIDE 5 MG TABLET PO SCH (09:52)
[2019-12-20 11:53] LABS: CLOSTRIDIUM DIFFICILE ANTIGEN POSITIVE; CLOSTRIDIUM DIFFICILE TOXIN NEGATIVE (Negative)
[2019-12-20] MEDS ORDERED: metroNIDAZOLE 500 MG TABLET PO SCH (13:00)
[2019-12-20 15:45] VITALS: BP 106/72
== END 2019-12-20 15:57 | DRG 371 ==
LOC: ED 11:51 → EDIP 13:15 → 3N 21:05
PROVIDERS: ADMIT Hospitalist; ATTEND Family Medicine
DX: A04.71 Enterocolitis due to Clostridium difficile, recurrent (principal); N17.0 Acute kidney failure with tubular necrosis; E43 Unspecified severe protein-calorie malnutrition; E46 Unspecified protein-calorie malnutrition; I50.42 Chronic combined systolic (congestive) and diastolic (congestive) heart failure; I13.0 Hypertensive heart and chronic kidney disease with heart failure and stage 1 through stage 4 chronic kidney disease, or unspecified chronic kidney disease; J96.10 Chronic respiratory failure, unspecified whether with hypoxia or hypercapnia; K57.92 Diverticulitis of intestine, part unspecified, without perforation or abscess without bleeding; E86.0 Dehydration; J44.9 Chronic obstructive pulmonary disease, unspecified; D64.9 Anemia, unspecified; E03.9 Hypothyroidism, unspecified; Z68.20 Body mass index [BMI] 20.0-20.9, adult; E78.5 Hyperlipidemia, unspecified; F03.90 Unspecified dementia, unspecified severity, without behavioral disturbance, psychotic disturbance, mood disturbance, and anxiety; I25.2 Old myocardial infarction; N40.0 Benign prostatic hyperplasia without lower urinary tract symptoms; R62.7 Adult failure to thrive; Z66 Do not resuscitate; Z87.891 Personal history of nicotine dependence; N18.3 Chronic kidney disease, stage 3 (moderate); I95.9 Hypotension, unspecified; R53.81 Other malaise; D72.829 Elevated white blood cell count, unspecified
CPT/HCPCS: 36415; 74176; 80053; 81001; 83605; 83690; 83735; 84100; 84443; 85025; 87040; 87077; 87086; 87186; 87324; 93005; G0378; J0690; J1644; J2543; J3370; J3490; J7030